=== PATIENT | female | born 2005 | race Caucasian/White ===

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

== ENCOUNTER 2023-05-01 09:58 | Emergency (ER) | payer OTHER ==
[~2023-05-01] VITALS: Ht 157.5 cm; Wt 70.7 kg
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
[~2023-05-01 09:58] MED LIST changes: +CILOXAN5 ML OU; +IBU600 MG PO; +TAMIFLU75 MG PO
[2023-05-01] MEDS ORDERED: ONDANSETRON ODT8 MG PO (11:02)
[2023-05-01] MEDS ORDERED: IBU600 MG PO (11:02)
[2023-05-01 11:04] VITALS: BP 93/63
== END 2023-05-01 11:15 | disposition home or self-care (01) ==
LOC: ED 09:58
DX: N93.8 Other specified abnormal uterine and vaginal bleeding (principal)
CPT/HCPCS: 36415; 84703; 85025; 96374; 99284 25; J1885